=== PATIENT | male | born 1970 | race Caucasian/White ===

== ENCOUNTER 2018-08-18 10:48 | Day surgery (SDC) | payer OTHER ==
[~2018-08-18] VITALS: Ht 172.7 cm; Wt 71.1 kg
[~2018-08-18 10:48] MED LIST: PROPOFOL 200 MG INJ ONE
[2018-08-18 11:10] VITALS: Ht 172.7 cm; Wt 71.1 kg
[2018-08-18] MEDS ORDERED: SENNA (11:31)
[2018-08-18] MEDS ORDERED: CLONAZEPAM (11:31)
[2018-08-18] MEDS ORDERED: METOPROLOL (11:31)
[2018-08-18] MEDS ORDERED: PROTONIX (11:31)
[2018-08-18 12:11] VITALS: BP 122/79; PULSE 58; RESP 20
--- NOTE | 2018-08-18 12:16 | PREAC ---
Date/Time of Note Date/Time of Note DATE: 08/18/18 TIME: 12:15 Anesthesia Eval and Record Evaluation Time Pre-Procedure Interview DATE: 08/18/18 TIME: 12:14 Age 47 Sex male NPO: 8 hrs Preoperative diagnosis GERD Planned procedure EGD Past Medical History Past Medical History: Includes Cardio: HTN, Dyslipidemia GI: GERD Psych: Depression, Anxiety Surgery & Anesthesia Issues No known issue Meds Anticoagulation: No Beta Beverly within 24 hr: Yes Reported Medications [Clonazepam] No Conflict Check 08/18/18 [Senna] No Conflict Check 08/18/18 [Metoprolol] No Conflict Check 08/18/18 [Protonix] No Conflict Check 08/18/18 Meds reviewed: Yes Allergies Coded Allergies: No Known Allergy (Unverified , 08/18/18) Allergies Reviewed: Yes Labs/Studies Labs Reviewed: Reviewed by anesthesiologist test: N/A Pre-procedure Exam Last vitals Vital Signs Date Temp Pulse Resp B/P (MAP) Pulse Ox O2 O2 Flow FiO2 Time Delivery Rate 08/18/18 97.8 58 20 122/79 100 Room Air 12:11 (93) Airway: Adequate mouth opening, Adequate thyromental dist Mallampati: Mallampati III Teeth: Normal Lung: Normal Heart: Normal ASA Physical Status ASA physical status: 2 Emergency: None Planned Anesthetic General/MAC: MAC Planned Pain Management Parenteral pain med Pre-operative Attestations Prior to commencing anesthesia and surgery, the patient was re-evaluated, there was verification of: *The patient's identity *The results of appropriate recent lab work and preoperative vital signs *The above evaluation not changing prior to induction *Anesthetic plan, risk benefits, alternative and complications discussed with patient/family; questions answered; patient/family understands, accepts and wishes to proceed. LINDA CAICEDO MD Aug 18, 2018 12:15
[2018-08-18] MEDS ORDERED: LIDOCAINE 2% (SDV) 5 ML INJ ONE (12:30)
[2018-08-18] MEDS ORDERED: PROPOFOL 60 ML ONE (12:30)
[2018-08-18 13:11] VITALS: BP 123/74; PULSE 70; RESP 16
--- NOTE | 2018-08-18 20:35 | PAC ---
Date/Time of Note Date/Time of Note DATE: 08/18/18 TIME: 20:35 Post-Anesthesia Notes Post-Anesthesia Note Last documented vital signs Vital Signs Date Temp Pulse Resp B/P (MAP) Pulse Ox O2 O2 Flow FiO2 Time Delivery Rate 08/18/18 70 16 123/74 99 Room Air 13:11 (90) 08/18/18 97.8 12:11 Activity: WNL Respiratory function: WNL Cardiovascular function: WNL Mental status: Baseline Pain reasonably controlled: Yes Hydration appropriate: Yes Nausea/Vomiting absent: Yes LINDA CAICEDO MD Aug 18, 2018 20:35
== END 2018-08-18 15:19 | disposition home or self-care (01) ==
LOC: GIL 10:48
PROVIDERS: ATTEND Internal Medicine Gastroenterology
DX: K21.9 Gastro-esophageal reflux disease without esophagitis (principal); K22.10 Ulcer of esophagus without bleeding; I10 Essential (primary) hypertension
CPT/HCPCS: 43239; 88305; 88312; Z7610

== ENCOUNTER 2018-08-27 06:35 | Day surgery (SDC) | payer OTHER ==
[2018-08-25 13:02] VITALS: BMI 24.1
[2018-08-27] VITALS (18 sets, daily range): BP systolic 117–150; BP diastolic 74–100; PULSE 42–126; RESP 14–28; Ht 172.7 cm; Wt 70.6 kg
[~2018-08-27] VITALS: Ht 172.7 cm; Wt 70.6 kg
[~2018-08-27 06:35] MED LIST changes: +CLON-412 PO; +METO-319 PO; +PANT40TA3 PO; -PROPOFOL 200 MG INJ ONE
[2018-08-27] MEDS ORDERED: PROPOFOL 200 MG INJ ONE (07:00)
[2018-08-27] MEDS ORDERED: ROCURONIUM 50 MG INJ ONE (07:00)
[2018-08-27] MEDS ORDERED: LIDOCAINE 2% (SDV) 5 ML INJ ONE (07:00)
--- NOTE | 2018-08-27 09:12 | HPN ---
Date/Time of Note Date/Time of Note DATE: 08/27/18 TIME: 09:10 Interval H&P Admission Note Pt. seen H&P reviewed: No system changes The procedure has been discussed with the patient in details. The options of treatment including observation extracorporeal shockwave lithotripsy, the benefits the risks and the possible complications were discussed also discussed that the stone fragments may come down the ureter and cause obstruction or the fragments could stay in the lower pole of the left kidney also the risks of bleeding infection the risk of anesthesia were all discussed with the patient in detail and he understood all of that and wants to proceed with the shockwave lithotripsy. Also discussed the possibility of doing cystoscopy and insertion of left ureteral catheter to visualize the stone in case the stone is not seen on the fluoroscopy. DOM SANDS MD Aug 27, 2018 09:12
--- NOTE | 2018-08-27 09:18 | PREAC ---
Date/Time of Note Date/Time of Note DATE: 08/27/18 TIME: 09:16 Anesthesia Eval and Record Evaluation Time Pre-Procedure Interview DATE: 08/27/18 TIME: 09:16 Age 47 Sex male NPO: 8 hrs Preoperative diagnosis Nephrolithiasis Planned procedure Extracorporeal shockwave lithotripsy Past Medical History Past Medical History: Includes Cardio: HTN GI: GERD Psych: Depression, Anxiety Surgery & Anesthesia Issues No known issue Meds Anticoagulation: No Beta Beverly within 24 hr: Yes Reported Medications Pantoprazole* (Protonix*) 40 Mg Tablet.dr, 40 MG PO DAILY, TAB 08/25/18 Clonazepam* (Klonopin*) 1 Mg Tablet, 1 MG PO BID, TAB 08/25/18 Metoprolol Succinate* (Toprol XL*) 50 Mg Tab.er.24h, 50 MG PO DAILY, #30 TAB 08/25/18 Discontinued Reported Medications [Clonazepam] No Conflict Check 08/18/18 [Senna] No Conflict Check 08/18/18 [Metoprolol] No Conflict Check 08/18/18 [Protonix] No Conflict Check 08/18/18 Current Medications Ceftriaxone Sodium 50 ml @ 100 mls/hr ONCE ONCE IVPB ; Start 08/27/18 at 09:30; Stop 08/27/18 at 09:59 Meds reviewed: Yes Allergies Coded Allergies: No Known Allergy (Unverified , 08/25/18) Allergies Reviewed: Yes Labs/Studies Labs Reviewed: Reviewed by anesthesiologist test: N/A Pre-procedure Exam Airway: Adequate mouth opening, Adequate thyromental dist Mallampati: Mallampati II Teeth: Normal Lung: Normal Heart: Normal ASA Physical Status ASA physical status: 2 Emergency: None Planned Anesthetic General/MAC: ETT Pre-operative Attestations Prior to commencing anesthesia and surgery, the patient was re-evaluated, there was verification of: *The patient's identity *The results of appropriate recent lab work and preoperative vital signs *The above evaluation not changing prior to induction *Anesthetic plan, risk benefits, alternative and complications discussed with patient/family; questions answered; patient/family understands, accepts and wishes to proceed. JOEL SALEH MD Aug 27, 2018 09:18
[2018-08-27] MEDS ORDERED: CEFTRIAXONE 1 GM/50 ML (PMX) 50 ML IVPB ONE (09:30)
[2018-08-27] MEDS ORDERED: FENTAnyl 50 MCG/ML VIAL ONE (09:34)
[2018-08-27] MEDS ORDERED: MIDAZOLAM 1 MG/ML 2 ML INJ ONE (09:35)
[2018-08-27] MEDS ORDERED: ONDANSETRON 4 MG INJ ONE (10:13)
[2018-08-27] MEDS ORDERED: DEXAMETHASONE 4 MG/ML 5 ML INJ ONE (10:13)
[2018-08-27] MEDS ORDERED: KETOROLAC 30 MG INJ ONE (10:43)
[2018-08-27] MEDS ORDERED: FUROSEMIDE 20 MG INJ ONE (10:44)
--- NOTE | 2018-08-27 10:57 | PAC ---
Date/Time of Note Date/Time of Note DATE: 08/27/18 TIME: 10:57 Post-Anesthesia Notes Post-Anesthesia Note Activity: WNL Respiratory function: WNL Cardiovascular function: WNL Mental status: Baseline Pain reasonably controlled: Yes Hydration appropriate: Yes Nausea/Vomiting absent: Yes JOEL SALEH MD Aug 27, 2018 10:57
[2018-08-27] MEDS ORDERED: OXYCODONE/ACETAMINOPHEN (5/325) TAB PO PRN ×2 (11:00)
[2018-08-27] MEDS ORDERED: HYDROmorphONE 1 MG/5 ML IV SYRINGE IV PRN ×2 (11:00)
[2018-08-27] MEDS ORDERED: FENTAnyl 50 MCG/ML VIAL IV PRN ×2 (11:00)
[2018-08-27] MEDS ORDERED: LABETALOL HCL 20MG INJ IV PRN (11:00)
[2018-08-27] MEDS ORDERED: MEPERIDINE 25 MG INJ IV PRN (11:00)
[2018-08-27] MEDS ORDERED: ONDANSETRON 4 MG INJ IV PRN ×2 (11:00)
[2018-08-27] MEDS ORDERED: hydrALAzine 20 MG INJ IV PRN (11:00)
[2018-08-27] MEDS ORDERED: HYDROCODONE/APAP (5/325) TAB PO PRN (11:00)
--- NOTE | 2018-08-27 11:01 | OPR ---
Date/Time of Note Date/Time of Note DATE: 08/27/18 TIME: 10:56 Operative Report Procedure Date: Aug 27, 2018 Preoperative Diagnosis Left renal stones Postoperative Diagnosis Same Operation/Procedure Performed Left extracorporeal shockwave lithotripsy Surgeon see signature line Social Sciences Lecturer health type technician Anesthesia Type: general Anesthesiologist: JOEL SALEH MD Estimated Blood Loss: none Transfusion none Specimen None Grafts/Implants none Complications none Pt Condition Post Procedure: stable Disposition: PACU Indications Left renal stones Procedure Description The patient was brought to the operating room. He was positioned in the supine position on the lithotripsy machine table. He was given general anesthesia and 1 g of ceftriaxone at the start of the procedure. Timeout was done and the patient was identified by his name, birthdate, the procedure and the side of the procedure. The stone located in the lower pole calyx of the left kidney and measuring 9 mm was then visualized on both screens. The shockwave lithotripsy was then started. The energy level started with 3 KV and went up to 7 gradually. The position of the stone was checked regularly every 300-400 shockwaves. The stone appeared to be breaking well and the total shockwaves delivered were 2000 shocks. There was another small stone measuring about 2-3 mm and that stone was also treated with 500 shockwaves. The patient was given 10 mg of Lasix at the end of the procedure. The patient tolerated the procedure well and was transferred to the recovery room in a stable and satisfactory condition. DOM SANDS MD Aug 27, 2018 11:01
[2018-08-27] MEDS ORDERED: ACETAMINOPHEN 1000MG/100ML IV 100 ML IVPB ONE (13:00)
== END 2018-08-27 12:51 | disposition home or self-care (01) ==
LOC: SDS 06:35
PROVIDERS: ATTEND Urology
DX: N20.0 Calculus of kidney (principal); I10 Essential (primary) hypertension
CPT/HCPCS: 50590; 74018; J0131; J0696; J1100; J1170; J1885; J1940; J2250; J2405; J3010; Z7512; Z7610

== ENCOUNTER 2018-08-30 08:48 | Emergency (ER) | payer OTHER ==
[~2018-08-30] VITALS: Ht 172.7 cm; Wt 72.0 kg
[2018-08-30 08:51] VITALS: Ht 172.7 cm; Wt 72.0 kg
[2018-08-30 12:14] VITALS: BP 157/75; PULSE 61; RESP 18
--- NOTE | 2018-08-30 15:50 | ERD ---
ER Documentation Chief Complaint Chief Complaint pt bib self with c/o hematuria s/p lithotri for kidney stone HPI 47 yr old male complaining of hematuria. Patient had lithotripsy performed by Dr. De 2 days ago. Patient has no pain but is concerned because there is hematuria. Patient is feeling weak. He has a follow-up appointment in 3 days. Denies any fevers. Medical history hypertension anxiety. Surgical history denies. Social history denies. ROS All systems reviewed and are negative except as per history of present illness. Medications Home Meds Reported Medications Pantoprazole* (Protonix*) 40 Mg Tablet.dr, 40 MG PO DAILY, TAB 08/25/18 Clonazepam* (Klonopin*) 1 Mg Tablet, 1 MG PO BID, TAB 08/25/18 Metoprolol Succinate* (Toprol XL*) 50 Mg Tab.er.24h, 50 MG PO DAILY, #30 TAB 08/25/18 Discontinued Reported Medications [Clonazepam] No Conflict Check 08/18/18 [Senna] No Conflict Check 08/18/18 [Metoprolol] No Conflict Check 08/18/18 [Protonix] No Conflict Check 08/18/18 Allergies Allergies: Coded Allergies: No Known Allergy (Unverified , 08/25/18) PMhx/Soc History of Surgery: Yes (TENDON RECONSTRUCTION RIGHT THUMB,) Anesthesia Reaction: No Hx Neurological Disorder: No Hx Respiratory Disorders: No Hx Cardiac Disorders: Yes (PALPITATION, htn) Hx Psychiatric Problems: Yes (chronic anxiety) Hx Miscellaneous Medical Probl: Yes (,dilatation of esophagus, kidney stone) Hx Alcohol Use: Yes (socially) Hx Substance Use: No Hx Tobacco Use: No FmHx Family History: No diabetes, No coronary disease, No other Physical Exam Vitals Vital Signs Date Temp Pulse Resp B/P (MAP) Pulse Ox O2 O2 Flow FiO2 Time Delivery Rate 08/30/18 98.0 61 18 157/75 100 Room Air 12:14 (102) 08/30/18 97.9 77 18 184/109 100 08:51 (134) Physical Exam GENERAL: The patient is well-appearing, well-nourished, in no acute distress CHEST: Clear to auscultation bilaterally. There are no rales, wheezes or rhonchi. HEART: Regular rate and rhythm. No murmurs, clicks, rubs or gallops. No S3 or S4. ABDOMEN:Soft, nontender and nondistended. Good bowel sounds. No rebound or guarding. No gross peritonitis. No gross organomegaly or masses. BACK: No midline or flank tenderness. Result Diagram: 08/30/18 0916 08/30/18 0916 Results 24 hrs Laboratory Tests Test 08/30/18 09:16 White Blood Count 4.0 10^3/ul Red Blood Count 4.50 10^6/ul Hemoglobin 14.9 g/dl Hematocrit 44.7 % Mean Corpuscular Volume 99.3 fl Mean Corpuscular Hemoglobin 33.1 pg Mean Corpuscular Hemoglobin Concent 33.3 g/dl Red Cell Distribution Width 12.5 % Platelet Count 147 10^3/UL Mean Platelet Volume 13.1 fl Immature Granulocytes % 0.000 % Neutrophils % 57.7 % Lymphocytes % 27.6 % Monocytes % 13.7 % Eosinophils % 0.5 % Basophils % 0.5 % Nucleated Red Blood Cells % 0.0 /100WBC Immature Granulocytes # 0.000 10^3/ul Neutrophils # 2.3 10^3/ul Lymphocytes # 1.1 10^3/ul Monocytes # 0.6 10^3/ul Eosinophils # 0.0 10^3/ul Basophils # 0.0 10^3/ul Nucleated Red Blood Cells # 0.0 10^3/ul Urine Color RED Urine Clarity CLEAR Urine pH 9.0 Urine Specific [place] 1.001 Urine Ketones NEGATIVE mg/dL Urine Nitrite NEGATIVE mg/dL Urine Bilirubin NEGATIVE mg/dL Urine Urobilinogen NEGATIVE mg/dL Urine Leukocyte Esterase NEGATIVE Leonidas/ul Urine Microscopic RBC > 182 /HPF Urine Microscopic WBC 12 /HPF Urine Bacteria FEW /HPF Urine Hemoglobin 3+ mg/dL Urine Glucose NEGATIVE mg/dL Urine Total Protein 1+ mg/dl Sodium Level 140 mmol/L Potassium Level 5.0 mmol/L Chloride Level 103 mmol/L Carbon Dioxide Level 30 mmol/L Anion Gap 7 Blood Urea Nitrogen 8 mg/dl Creatinine 0.87 mg/dl Est Glomerular Filtrat Rate mL/min > 60 mL/min Glucose Level 91 mg/dl Calcium Level 9.4 mg/dl Total Bilirubin 0.4 mg/dl Direct Bilirubin 0.00 mg/dl Indirect Bilirubin 0.4 mg/dl Aspartate Amino Transf (AST/SGOT) 22 IU/L Alanine Aminotransferase (ALT/SGPT) 25 IU/L Alkaline Phosphatase 72 IU/L Total Protein 7.4 g/dl Albumin 4.2 g/dl Globulin 3.20 g/dl Albumin/Globulin Ratio 1.31 Lipase 83 U/L Procedures/MDM DIAGNOSTIC IMAGING REPORT Patient: WHITNEY REED : 1970 Age: 47 Sex: M MR #: [id number] DOS: 08/30/18 1102 Ordering MD: ALEJANDRA ALVARADO PA-C Location: E Room/Bed: PROCEDURE: Retroperitoneal ultrasound. CLINICAL INDICATION: Flank pain, hematuria TECHNIQUE: Adam scale and color doppler ultrasound images of the retroperitoneum, kidneys, urinary bladder COMPARISON: US ABDOMEN 06/23/2018 FINDINGS: Kidneys: Right length (cm) : 9.9 Left length (cm) : 10.6 Right cortical thickness: Normal. Left cortical thickness: Normal. Echogenicity: Normal bilaterally. Hydronephrosis: None. Renal calculi: Small left-sided renal calculi are less well visualized on the current examination. Focal lesions: None. Free fluid/ascites: None. Bladder: No focal lesions. Other findings: Normal size prostate measuring maximally 4.6 cm. IMPRESSION: Small left-sided renal calculi are less well visualized on the current examination. No hydronephrosis. ER Course: Dr. De was consulted and stated patient was stable for outpatient follow-up. All questions answered at discharge MDM: 47-year-old male presenting with hematuria. I have low suspicion for complications secondary to lithotripsy. There are no abnormalities found on ultrasound of the kidney. Patient's renal function is stable. No signs of infection within the urine. Patient is discharged with strict ER precautions and told to follow-up with primary care within 1-2 days for close evaluation. All questions answered at discharge Departure Diagnosis: Primary Impression: Hematuria Condition: Stable Patient Instructions: Hematuria Referrals: COMMUNITY CLINICS YOU HAVE RECEIVED A MEDICAL SCREENING EXAM AND THE RESULTS INDICATE THAT YOU DO NOT HAVE A CONDITION THAT REQUIRES URGENT TREATMENT IN THE EMERGENCY DEPARTMENT. FURTHER EVALUATION AND TREATMENT OF YOUR CONDITION CAN WAIT UNTIL YOU ARE SEEN IN YOUR DOCTORS OFFICE WITHIN THE NEXT 1-2 DAYS. IT IS YOUR RESPONSIBILITY TO MAKE AN APPOINTMENT FOR FOLOW-UP CARE. IF YOU HAVE A PRIMARY DOCTOR --you should call your primary doctor and schedule an appointment IF YOU DO NOT HAVE A PRIMARY DOCTOR YOU CAN CALL OUR PHYSICIAN REFERRAL HOTLINE AT IF YOU CAN NOT AFFORD TO SEE A PHYSICIAN YOU CAN CHOSE FROM THE FOLLOWING [facility] [address] [facility] [address] [facility] [address] [facility] [address] [facility] [address] [facility]. [facility] [address] Additional Instructions: FOLLOW UP WITH YOUR PRIMARY CARE PHYSICIAN TOMORROW.Return to this facility if you are not improving as expected. CARLO ALVARADO PA-C Aug 30, 2018 15:49
== END 2018-08-30 12:14 | disposition home or self-care (01) ==
LOC: FTE 08:48
DX: R31.9 Hematuria, unspecified (principal); I10 Essential (primary) hypertension
CPT/HCPCS: 36415; 76775; 80053; 81001; 83690; 85025